=== PATIENT | male | born 1945 | race Caucasian/White ===

== ENCOUNTER 2017-04-08 11:08 | Emergency (ER) | payer MEDICARE, OTHER ==
--- NOTE | 2017-04-08 13:19 | UC ---
Minor Trauma HPI - HPI Summary HPI Summary: Last night pt tripped and fell on his patio, landing on L side. Today primary pain is in L hip and leg, feels LLE "giving out" when he tries to bear weight. Has some muscle soreness in L shoulder and neck and an abrasion on his L rib cage, but denies any significant pain anywhere but LLE. [place] top of head strike something lightly in the fall, denies LOC, vomiting, dizziness, COTA, or balance problems. Had L THR about a year ago. Also hx of R TKR. - History of Current Complaint Chief Complaint: UCLowerExtremity Stated Complaint: LEG PAIN Time Seen by Provider: 04/08/17 12:56 Hx Obtained From: Patient Onset/Duration: Sudden Onset Onset Of Pain: Immediate Severity Initially: Moderate Severity Currently: Moderate Mechanism Of Injury: Fall From A Standing Position Aggravating Factor(s): Ambulation, Movement, Weight Bearing Alleviating Factor(s): Rest - Allergies/Home Medications Allergies/Adverse Reactions: Allergies Allergy/AdvReac Type Severity Reaction Status Date / Time No Known Allergies Allergy Verified 04/08/17 11:12 PMH/Surg Hx/FS Hx/Imm Hx Endocrine History: Diabetes Cardiovascular History: Hypertension Psychological History: Depression - Surgical History Surgical History: Yes Surgery Procedure, Year, and Place: 2000 TONSILLECTOMY, UVULOPALATOPHARYNGOPLASTY, [facility] [place]. REPAIR RIGHT HUMERUS FRACTURE,. UMBILICAL HERNIA REPAIR. 2014 RIGHT KNEE PARTIAL REPLACEMENT, [facility]. LAMINECTOMY LUMBAR REGION. CARPAL TUNNEL X 3, [facility]. 2001 RIGHT TRIGGER FINGER RELEASE, [facility] [place]. 2002 RIGHT KNEE ARTHROSCOPIC SURGERY, [facility] [place] - Family History Known Family History: Positive: Hypertension - Social History Occupation: Retired Alcohol Use: None Substance Use Type: None Smoking Status (MU): Former Smoker Type: Cigarettes Length of Time of Smoking/Using Tobacco: 2 YEARS Have You Smoked in the Last Year: No When Did the Patient Quit Smoking/Using Tobacco: 1960 - Immunization History Most Recent Influenza Vaccination: 2014 Most Recent Tetanus Shot: MORE THAN TEN YEARS Most Recent Pneumonia Vaccination: NONE Review of Systems Constitutional: Negative Skin: Bruising Eyes: Negative ENT: Negative Respiratory: Negative Cardiovascular: Negative Gastrointestinal: Negative Genitourinary: Negative Motor: Negative Neurovascular: Negative Musculoskeletal: Arthralgia - LLE, Decreased ROM - L hip and knee Neurological: Negative Psychological: Negative All Other Systems Reviewed And Are Negative: Yes Physical Exam Triage Information Reviewed: Yes Appearance: Well-Appearing, Pain Distress - with movement, Obese Vital Signs: Initial Vital Signs Temp 99.7 F 04/08/17 11:13 Pulse 78 04/08/17 11:13 Resp 20 04/08/17 11:13 BP 145/82 04/08/17 11:13 Pulse Ox 100 04/08/17 11:13 Vital Signs Reviewed: Yes Eye Exam: Normal Eyes: Positive: Conjunctiva Clear ENT Exam: Normal ENT: Positive: Normal ENT inspection, Hearing grossly normal, Pharynx normal, TMs normal Dental Exam: Other - dentures Neck exam: Other - no bony tenderness, mild muscular tenderness Neck: Positive: Supple, Nontender Respiratory Exam: Other - no pain with direct or indirect rib stress Respiratory: Positive: Chest non-tender, Lungs clear, Normal breath sounds, No respiratory distress, No accessory muscle use Cardiovascular Exam: Normal Cardiovascular: Positive: RRR, No Murmur Musculoskeletal Exam: Other - no bony tenderness in ribs or c-spine Musculoskeletal: Positive: Strength Limited @ - L hip flexion, L knee extension , ROM Limited @ - L hip Neurological Exam: Normal Neurological: Positive: Alert Psychological Exam: Normal Skin Exam: Normal Minor Trauma Course/Dx - Differential Dx/Diagnosis Provider Diagnoses: L hip contusion. L chest abrasion. L hip sprain Discharge - Discharge Plan Condition: Stable Disposition: HOME Patient Education Materials: Contusion in Adults (ED), Hip Sprain (ED) Referrals: Juan Diego NIEVES,Wagner Dutta [Primary Care Provider] - 1 Week Additional Instructions: Keep increasing your activity as your pain improves. If you are not seeing good improvement within a week you should see your primary care provider. I recommend you take 1-2 aleve pills twice per day for pain.
--- NOTE | 2017-04-08 14:05 | RAD ---
Indication: LEFT hip pain post fall yesterday. Post LEFT hip replacement. Comparison: January 14, 2017 and September 10, 2016 Technique: AP pelvis and AP and frog-leg lateral views LEFT hip. Report: LEFT hip prosthesis is normally located. No evidence for loosening or periprosthetic fracture. Wafer-shaped bone fragment approximating the lesser trochanter/iliopsoas tendon insertion is unchanged compared with the 2016 exam without concern Negative for pelvic fracture or joint diastases. Unremarkable soft tissue contours. IMPRESSION: No traumatic injury of the prosthetic LEFT hip evident.
--- NOTE | 2017-04-08 14:11 | RAD ---
INDICATION: Left knee injury. TECHNIQUE: 4 views of the left knee were obtained. FINDINGS: The bones are in normal alignment. No joint effusion or fracture is seen. Joint spaces appear maintained. IMPRESSION: NO EVIDENCE FOR FRACTURE.
[2017-04-08 14:28] VITALS: BP 128/73
== END 2017-04-08 14:32 | disposition home or self-care (01) ==
LOC: UCEAST 11:08
DX: Z87.891 Personal history of nicotine dependence (principal); S73.102A Unspecified sprain of left hip, initial encounter; W01.0XXA Fall on same level from slipping, tripping and stumbling without subsequent striking against object, initial encounter; Y93.9 Activity, unspecified; Y92.017 Garden or yard in single-family (private) house as the place of occurrence of the external cause; Y99.9 Unspecified external cause status; S70.02XA Contusion of left hip, initial encounter; S20.312A Abrasion of left front wall of thorax, initial encounter; S89.92XA Unspecified injury of left lower leg, initial encounter; E11.9 Type 2 diabetes mellitus without complications; Z96.642 Presence of left artificial hip joint; Z96.651 Presence of right artificial knee joint; F32.9 Major depressive disorder, single episode, unspecified; I10 Essential (primary) hypertension
CPT/HCPCS: 99212; G0463

== ENCOUNTER 2024-03-01 14:09 | Observation (INO) ==
[2024-03-01 15:32] LABS: ABS Basophils 0.1 10^3/uL (0.0-0.1); ABS Eosinophils 0.2 10^3/uL (0.0-0.5); ABS Lymphocytes 1.4 10^3/uL (1.0-4.8); ABS Monocytes 0.7 10^3/uL (0.0-1.1); ABS Neutrophils 6.2 10^3/uL (1.5-7.6); ABS Nucleated RBC 0.01 10^3/ul; Eosinophil % 2.1 %; Hematocrit 41.7 % (38-53); Hemoglobin 14.5 g/dL (13.2-16.3); Lymphocyte % 16.8 %; Mean Corpuscular Hemoglobin 29.1 pg (27-33); Mean Corpuscular Hgb Conc 34.8 g/dL (31-36); Mean Corpuscular Volume 83.6 fL (80-97); Mean Platelet Volume 8.4 fL (7.5-11.2); Nucleated Red Blood Cells % 0.1 %/100WBC (0.0-0.8); Platelet Count 221 10^3/uL (150-450); Red Blood Count 4.98 10^6/uL (4.06-5.63); Red Cell Distribution Width 14.7 % (12-17); White Blood Count 8.5 10^3/uL (3.6-10.2)
[2024-03-01 16:03] LABS: Albumin 4.2 g/dL (3.2-5.2); Calcium 9.5 mg/dL (8.6-10.3); Creatinine, Serum 1.04 mg/dL (0.67-1.17); Globulin 2.1 g/dL (2-4); Magnesium 1.3 mg/dL (1.9-2.7); Potassium 3.9 mmol/L (3.5-5.0); Total Bilirubin 0.9 mg/dL (0.2-1.0); Total Protein 6.3 g/dL (6.4-8.9); eGFR CKD-EPI 72.6 (>60)
[2024-03-01 16:13] LABS: TSH Ultra Thyroid Stim Horm 0.48 mcIU/mL (0.34-5.60)
[2024-03-01] MEDS: Iodixanol (CONTRAST) 320 MG/ML 100 ML SDV IV ONE (17:07)
[2024-03-01 17:17] LABS: High Sensitivity Troponin 1 Hr 6 pg/mL (<20)
[2024-03-02] MEDS: Magnesium Sulfate 2 gm BAG 2 GM/50 ML BAG IVPB ONE ×2 (02:55→12:10)
[2024-03-02] MEDS: Enoxaparin 40 MG/0.4 ML SYR SUBCUT SCH (05:18)
[2024-03-02] MEDS: DULoxetine DR 60 mg CAP PO SCH (08:57)
[2024-03-02] MEDS ORDERED: Lisinopril/HCTZ 20/12.5 TB(NF) PO SCH (09:00)
[2024-03-02 09:01] LABS: Calcium 9.3 mg/dL (8.6-10.3); Creatinine, Serum 0.81 mg/dL (0.67-1.17); Magnesium 1.9 mg/dL (1.9-2.7); Potassium 3.7 mmol/L (3.5-5.0); eGFR CKD-EPI 89.1 (>60)
[2024-03-02] MEDS: KCL 20 MEQ/100 ML IVPREMIX 20 MEQ/100 ML BAG IV ONE (12:10)
[2024-03-02 14:12] VITALS: BP 122/74
[2024-03-02] MEDS ORDERED: Sulfur Hexaflouride MICROSPHR 25 MG VIAL ONE (14:37)
[2024-03-02 15:22] LABS: HDL Cholesterol 41.5 mg/dL
== END 2024-03-02 17:55 | disposition home or self-care (01) ==
LOC: ED 14:09 → INTOOBSV 23:36 → EDHOLD 23:36 → MEDTELE 03-02 00:25
PROVIDERS: ADMIT Internal Medicine; ATTEND Internal Medicine